=== PATIENT | male | born 1950 | race Hispanic/Latino ===

== ENCOUNTER 2020-05-14 18:17 | Observation (INO) | payer MEDICARE ==
[~2020-05-14] VITALS: Ht 172.7 cm; Wt 95.3 kg
[2020-05-14] MEDS ORDERED: ASPIRIN 81 MG CHEW TAB PO ONE (18:45)
[2020-05-14] MEDS ORDERED: DEXTROSE 50% SYRINGE 50 ML IV ONE (18:56)
--- NOTE | 2020-05-14 18:56 | NUR ---
d50 pushed-blood sugar 54
--- NOTE | 2020-05-14 19:01 | Emergency Department Note ---
History of Present Illnes History of Present Illness Chief Complaint: General Medicine Complaints History of Present Illness This is a 70 year old male arrived to the ED with complaints of generalized malaise and weakness and low blood sugar. 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 Any updates have been documented here. Past Medical History Recent Fever: No Clinical Suspicion of Infectio: No New/Unexplained Change in Ment: No Past Medical History: Diabetes Past Surgical History: None Review of Systems Review of Systems Constitutional: Reports as per HPI, Reports weakness EENTM: Reports no symptoms Cardiovascular: Reports no symptoms Respiratory: Reports no symptoms Gastrointestinal: Reports no symptoms Genitourinary: Reports no symptoms Musculoskeletal: Reports no symptoms Integumentary: Reports no symptoms Neurological: Reports no symptoms Psychological: Reports no symptoms Endocrine: Reports as per HPI Hematological/Lymphatic: Reports no symptoms Physical Exam Related Data Allergies: Coded Allergies: No Known Allergies (Unverified , 05/14/20) Triage Vital Signs Vital Signs Date Time Temp Pulse Resp B/P (MAP) Pulse Ox O2 Delivery O2 Flow Rate FiO2 05/14/20 18:33 97.2 57 16 166/110 97 Room Air Vital signs reviewed: Yes Physical Exam CONSTITUTIONAL Constitutional: Present well-developed, Present well-nourished HENT HENT: Present normocephalic, Present atraumatic, Present oropharynx clear/moist, Present nose normal HENT L/R: Present left ext ear normal, Present right ext ear normal EYES Eyes: Reports PERRL, Reports conjunctivae normal NECK Neck: Present ROM normal PULMONARY Pulmonary: Present effort normal, Present breath sounds normal CARDIOVASCULAR Cardiovascular: Present regular rhythm, Present heart sounds normal, Present capillary refill normal, Present normal rate GASTROINTESTINAL Abdominal: Present soft, Present nontender, Present bowel sounds normal GENITOURINARY Genitourinary: Present exam deferred SKIN Skin: Present warm, Present dry MUSCULOSKELETAL Musculoskeletal: Present ROM normal NEUROLOGICAL Neurological: Present alert, Present oriented x 3, Present no gross motor or sensory deficits PSYCHOLOGICAL Psychological: Present mood/affect normal, Present judgement normal Results Laboratory Lab results reviewed: Yes Laboratory comments Laboratory Tests Test 05/14/20 18:45 White Blood Count 11.25 x10e3/uL (4.8-10.8) Red Blood Count 4.53 x10e6/uL (4.3-5.7) Hemoglobin 12.6 g/dL (14.0-18.0) Hematocrit 38.9 % (38.2-49.6) Mean Corpuscular Volume 85.9 fL (81-99) Mean Corpuscular Hemoglobin 27.8 pg (28-32) Mean Corpuscular Hemoglobin Concent 32.4 g/dL (31-35) Red Cell Distribution Width 14.0 % (11.7-14.4) Platelet Count 208 x10e3/uL (140-360) Neutrophils (%) (Auto) 73.0 % (38.7-80.0) Lymphocytes (%) (Auto) 16.3 % (18.0-39.1) Monocytes (%) (Auto) 6.8 % (4.4-11.3) Eosinophils (%) (Auto) 3.1 % (0.0-6.0) Basophils (%) (Auto) 0.3 % (0.0-1.0) Neutrophils # (Auto) 8.2 (2.1-6.9) Lymphocytes # (Auto) 1.8 (1.0-3.2) Monocytes # (Auto) 0.8 (0.2-0.8) Eosinophils # (Auto) 0.4 (0.0-0.4) Basophils # (Auto) 0.0 (0.0-0.1) Absolute Immature Granulocyte (auto 0.06 x10e3/uL (0-0.1) Sodium Level 146 mmol/L (136-145) Potassium Level 4.4 mmol/L (3.5-5.1) Chloride Level 115 mmol/L (98-107) Carbon Dioxide Level 20 mmol/L (22-29) Anion Gap 15.4 mmol/L (8-16) Blood Urea Nitrogen 45 mg/dL (7-26) Creatinine 2.00 mg/dL (0.72-1.25) Estimat Glomerular Filtration Rate 33 ML/MIN (60-) BUN/Creatinine Ratio 23 (6-25) Glucose Level 43 mg/dL (74-118) Calcium Level 9.9 mg/dL (8.4-10.2) Total Bilirubin 0.4 mg/dL (0.2-1.2) Aspartate Amino Transf (AST/SGOT) 16 IU/L (5-34) Alanine Aminotransferase (ALT/SGPT) 13 IU/L (0-55) Alkaline Phosphatase 105 IU/L (40-150) Creatine Kinase 132 IU/L (30-200) Creatine Kinase MB 2.90 ng/mL (0-5.0) Troponin I < 0.001 ng/mL (0-0.300) Total Protein 7.8 g/dL (6.5-8.1) Albumin 4.0 g/dL (3.5-5.0) Globulin 3.8 g/dL (2.3-3.5) Albumin/Globulin Ratio 1.1 (0.8-2.0) Assessment & Plan Medical Decision Making MDM 62-year-old male arrived to the ED with low blood sugar, patient given oral intake as well as and the D50 with continuous fluctuations in blood sugar. Patient is on the toes a very patient in the hospital for observation and serial blood glucose monitoring. Assessment & Plan Final Impression: (1) Hypoglycemia Depart Disposition: ADMITTED Last Vital Signs Date Time Temp Pulse Resp B/P (MAP) Pulse Ox O2 Delivery O2 Flow Rate FiO2 05/14/20 18:33 97.2 57 16 166/110 97 Room Air Home Meds Reported Medications Olmesartan Medoxomil (Olmesartan Medoxomil) 40 Mg Tablet, 40 MG DAILY 05/14/20 Liraglutide (VICTOZA 3-BEN) 0.6 Mg/0.1 Ml Pen.injctr, 0.6 SQ 05/14/20 Insulin Degludec (Tresiba Flextouch U-100) 100 Unit/1 Ml Insuln.pen, 60 UNITS BLADIN DAILY 05/14/20 Carvedilol (CARVEDILOL) 12.5 Mg Tablet, 12.5 MG BID 05/14/20 RIRI PERKINS DO May 14, 2020 19:00
[2020-05-14 19:13] LABS: BASOPHILS % 0.3 % (0.0-1.0); EOSINOPHILS # (AUTO) 0.4 (0.0-0.4); EOSINOPHILS % 3.1 % (0.0-6.0); HEMATOCRIT 38.9 % (38.2-49.6); HEMOGLOBIN 12.6 g/dL (14.0-18.0); LYMPHOCYTES # (AUTO) 1.8 (1.0-3.2); LYMPHOCYTES % 16.3 % (18.0-39.1); MEAN CORPUSCULAR HEMOGLOBIN 27.8 pg (28-32); MEAN CORPUSCULAR HGB CONC 32.4 g/dL (31-35); MEAN CORPUSCULAR VOLUME 85.9 fL (81-99); MONOCYTES # (AUTO) 0.8 (0.2-0.8); MONOCYTES % 6.8 % (4.4-11.3); NEUTROPHILS # (AUTO) 8.2 (2.1-6.9); PLATELET COUNT 208 x10e3/uL (140-360); RED BLOOD COUNT 4.53 x10e6/uL (4.3-5.7)
[2020-05-14 19:33] LABS: ALANINE AMINOTRANSFERASE 13 IU/L (0-55); ALBUMIN/GLOBULIN RATIO 1.1 (0.8-2.0); ALKALINE PHOSPHATASE 105 IU/L (40-150); ANION GAP 15.4 mmol/L (8-16); BLOOD UREA NITROGEN 45 mg/dL (7-26); BUN/CREATININE RATIO 23 (6-25); CALCIUM 9.9 mg/dL (8.4-10.2); CARBON DIOXIDE 20 mmol/L (22-29); CHLORIDE 115 mmol/L (98-107); CREATINE KINASE 132 IU/L (30-200); EST GLOMERULAR FILTRATION RATE 33 ML/MIN (60-); POTASSIUM 4.4 mmol/L (3.5-5.1); SODIUM 146 mmol/L (136-145)
[2020-05-14 19:35] LABS: GLUCOSE 43 mg/dL (74-118)
--- NOTE | 2020-05-14 19:35 | Diagnostic Imaging Report ---
EXAMINATION: Head CT without contrast. HISTORY:Altered mental status. COMPARISON:None. TECHNIQUE: Multidetector axial images were obtained from the foramen magnum to the vertex without contrast. The images were reconstructed using brain and bone algorithms. Thin section brain images were reformatted into coronal and sagittal planes. Dose modulation, iterative reconstruction, and/or weight based adjustment of the mA/kV was utilized to reduce the radiation dose to as low as reasonably achievable. Intravenous contrast: None IMAGE QUALITY: Acceptable. FINDINGS: Skull/scalp: No lytic or blastic. lesions. No surgical changes. Parenchyma: Nonspecific few, scattered supratentorial white matter hypodensity are likely related to small vessel ischemic changes. No acute hemorrhage, mass or acute major vascular territorial infarct. Arteries: No density suggestive of thrombosis. Dural sinuses: No abnormal density suggestive of thrombosis. Ventricles: Mild compensated dilatation due to volume loss. No hydrocephalus. Extra-axial spaces: No abnormal density. Brain volume: Normal for age. Craniocervical junction: No mass, Chiari malformation, or basilar invagination. Sella: No mass. Paranasal/mastoid sinuses: Imaged portions unremarkable. IMPRESSION: No acute intracranial abnormality. Signed by: Dr. Joanie Pacheco M.D. on 05/14/2020 7:32 PM
[2020-05-14] MEDS ORDERED: VICTOZA 3-0.6 MG/0.1 SQ (20:39)
[2020-05-14] MEDS ORDERED: CARVEDILOL12.5 MG (20:39)
[2020-05-14] MEDS ORDERED: OLMESARTAN MEDO40 MG (20:39)
[2020-05-14] MEDS ORDERED: TRESIBA FL100 UNIT/1 BLADIN (20:39)
--- OUTSIDE RECORDS SUMMARY | 2020-05-14 21:38 | XMS REPORT | Continuity of Care Document ---
Author Author [facility] Organization [facility] Address [address] [place] [address] Dr. Hendrix [address] [place] [id number] Phone Unavailable Care Team Providers Care Surveyor Instrument Assistant Name Role Phone Ira PERKINS Attcorry Unavailable Problems This patient has no known problems. Allergies, Adverse Reactions, Alerts This patient has no known allergies or adverse reactions. Medications This patient has no known medications. Procedures This patient has no known procedures. Results Test Description Test Time Test Comments Results Result Comments Source CT BRAIN WO 2020-05-14 19:29:00 [facility] : 1950 Sex: M [facility] [address] [place] [address] Patient Name: WILLIAM ENCISO MR #: [id number] : 1950 Age/Sex: 70/M Req #: [id number] [facility] Physician: Ordered by: RIRI PERKINS DO Report #: [id number] Location: ER Room/Bed: Procedure: [id number] CT/CT BRAIN WO Exam Date: Exam Time: REPORT STATUS: Signed EXAMINATION: Head CT without contrast. HISTORY:Altered mental status. COMPARISON:None. TECHNIQUE: Multidetector axial images were obtained from the foramen magnum to the vertex without contrast. The images were reconstructed using brain and bone algorithms. Thin section brain images were reformatted into coronal and sagittal planes. Dose modulation, iterative reconstruction, and/or weight based adjustment of the mA/kV was utilized to reduce the radiation dose to as low as reasonably achievable. Intravenous contrast: None IMAGE QUALITY: Acceptable. FINDINGS: Skull/scalp: No lytic or blastic. lesions. No surgical changes. Parenchyma: Nonspecific few, scattered supratentorial white matter hypodensity are likely related to small vessel ischemic changes. No acute hemorrhage, mass or acute major vascular territorial infarct. Arteries: No density suggestive of thrombosis. Dural sinuses: No abnormal density suggestive of thrombosis. Ventricles: Mild compensated dilatation due to volume loss. No hydrocephalus. Extra-axial spaces: No abnormal density. Brain volume: Normal for age. Craniocervical junction: No mass, Chiari malformation, or basilar invagination. Sella: No mass. Paranasal/mastoid sinuses: Imaged portions unremarkable. IMPRESSION: No acute intracranial abnormality. Signed by: Dr. Joanie Pacheco M.D. on 05/14/2020 7:32 PM Dictated By: JOANIE PACHECO MD 31 Transcribed By: YONATAN on 05/14/201931 COPY TO: RIRI PERKINS DO
[2020-05-14] MEDS ORDERED: DEXTROSE 50% SYRINGE 50 ML IV PRN (22:30)
[2020-05-15] VITALS (10 sets, daily range): BP systolic 129–185; BP diastolic 72–94
--- NOTE | 2020-05-15 03:29 | NUR ---
SPOKE TO DR. BRAXTON AT THIS TIME REGARDING BP READING 183/89, HR 67. NEW ORDER RECEIVED TO CONTINUE HOME MED CARVEDILOL TO START NOW. METOPROLOL TARTRATE 5MG IV Q2H PRN SYSTOLIC BP GREATER THAT 140.
[2020-05-15] MEDS ORDERED: METOPROLOL TARTRATE INJ 1 MG/ML VIAL IV PRN (03:30)
[2020-05-15] MEDS: CARVEDILOL 12.5 MG TAB PO SCH ×3 (04:05→16:17)
[2020-05-15 05:07] LABS: BASOPHILS % 0.3 % (0.0-1.0); EOSINOPHILS # (AUTO) 0.3 (0.0-0.4); EOSINOPHILS % 3.2 % (0.0-6.0); HEMATOCRIT 34.6 % (38.2-49.6); HEMOGLOBIN 11.2 g/dL (14.0-18.0); LYMPHOCYTES # (AUTO) 1.5 (1.0-3.2); LYMPHOCYTES % 17.8 % (18.0-39.1); MEAN CORPUSCULAR HEMOGLOBIN 27.9 pg (28-32); MEAN CORPUSCULAR HGB CONC 32.4 g/dL (31-35); MEAN CORPUSCULAR VOLUME 86.1 fL (81-99); MONOCYTES # (AUTO) 0.6 (0.2-0.8); MONOCYTES % 6.9 % (4.4-11.3); NEUTROPHILS # (AUTO) 6.2 (2.1-6.9); NEUTROPHILS % 71.3 % (38.7-80.0); PLATELET COUNT 195 x10e3/uL (140-360); RED BLOOD COUNT 4.02 x10e6/uL (4.3-5.7); RED CELL DISTRIBUTION WIDTH 14.3 % (11.7-14.4)
[2020-05-15 05:25] LABS: ALBUMIN 3.6 g/dL (3.5-5.0); ALBUMIN/GLOBULIN RATIO 1.1 (0.8-2.0); ANION GAP 16.5 mmol/L (8-16); CALCIUM 9.4 mg/dL (8.4-10.2); CREATININE, SERUM 2.02 mg/dL (0.72-1.25)
[2020-05-15 05:38] LABS: POTASSIUM 5.5 mmol/L (3.5-5.1)
--- NOTE | 2020-05-15 05:57 | NUR ---
H&P cc: low glucose HPI: 70yoM, PCP [facility], developed low blood glucose. Pt states that he was out, took extra victoza, later took tresiba, developed sweats and may have passed out. 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 affect a&ox3; becerril labs/meds revd A/P: 70yoM Hypoglycemia- give dextrose Hyperkalemia- give kayexalate TODD- IVF Metabolic acidosis- bicarbs CKD3 due to DM2? check renal U/S Obesity- 1/2 portion size needed BMI 31- as above HTN- resume home med Prop; scd; pepcid dispo; monitor labs CARL BRAXTON MD, PHD.
[2020-05-15] MEDS ORDERED: SODIUM BICARBONATE 8.4% 50 ML in SODIUM CHLORIDE 0.45% 1,000 ML IV ONE (06:00)
[2020-05-15] MEDS ORDERED: SOD POLYSTYRENE SULFONATE SUSP 15 GM/60 ML BTL PO ONE (06:00)
[2020-05-15] MEDS ORDERED: DOCUSATE SODIUM 100 MG CAP PO PRN (06:00)
[2020-05-15] MEDS ORDERED: ONDANSETRON HCL INJ 2MG/ML 2ML 2 MG/ML VIAL IV PRN (06:00)
[2020-05-15] MEDS ORDERED: ZOLPIDEM TARTRATE 5 MG TAB PO PRN (06:00)
[2020-05-15] MEDS ORDERED: ACETAMINOPHEN 325 MG TAB PO PRN (06:00)
--- NOTE | 2020-05-15 06:42 | NUR ---
SPOKE TO DR. BRAXTON TO CLARIFY IV FLUID ORDER. SAID IV FLUIDS IS CONTINUOUS. OFFSITE PHARMACY NOTIFIED
--- NOTE | 2020-05-15 07:00 | NUR ---
ASSUMED CARE. AAOX3. ACYANOTIC. RESTING IN BED. NO DISTRESS NOTED. CALL LIGHT IN REACH. SIDE RAILS UP X2. BED LOW AND LOCKED.
[2020-05-15] MEDS: FAMOTIDINE 20 MG TAB PO SCH ×2 (07:30→16:14)
[2020-05-15] MEDS: INSULIN DEGLUDEC 60 UNIT SQ SCH ×2 (09:00→13:30)
[2020-05-15] MEDS: SODIUM BICARBONATE 8.4% 50 ML in SODIUM CHLORIDE 0.45% 1,000 ML IV SCH (09:40)
--- NOTE | 2020-05-15 13:53 | NUR ---
PATIENT'S HOME MED WAS DELIVERED AT APPROXIMATELY 1320.
[2020-05-15 16:05] LABS: MAGNESIUM 1.8 MG/DL (1.3-2.1); POTASSIUM 5.2 mmol/L (3.5-5.1)
--- NOTE | 2020-05-15 21:35 | NUR ---
NOTIFIED DR. BRAXTON REGARDING BLOOD GLUCOSE READING 324. NEW ORDER RECEIVED FOR LOW DOSE HUMULIN R SLIDING SCALE.
[2020-05-15] MEDS: INSULIN REGULAR, HUMAN 100 UNIT/1 ML 3ML VIAL SQ SCH (22:17)
[2020-05-16] VITALS: BP 138/76
[2020-05-16] MEDS: SODIUM BICARBONATE 8.4% 50 ML in SODIUM CHLORIDE 0.45% 1,000 ML IV SCH ×2 (01:01→10:45)
[2020-05-16 04:00] VITALS: BP 158/90
[2020-05-16 06:18] LABS: BASOPHILS % 0.5 % (0.0-1.0); EOSINOPHILS # (AUTO) 0.6 (0.0-0.4); EOSINOPHILS % 7.8 % (0.0-6.0); HEMATOCRIT 32.3 % (38.2-49.6); HEMOGLOBIN 10.7 g/dL (14.0-18.0); LYMPHOCYTES # (AUTO) 1.9 (1.0-3.2); LYMPHOCYTES % 24.1 % (18.0-39.1); MEAN CORPUSCULAR HEMOGLOBIN 29.4 pg (28-32); MEAN CORPUSCULAR HGB CONC 33.1 g/dL (31-35); MEAN CORPUSCULAR VOLUME 88.7 fL (81-99); MONOCYTES # (AUTO) 0.7 (0.2-0.8); MONOCYTES % 8.6 % (4.4-11.3); NEUTROPHILS # (AUTO) 4.7 (2.1-6.9); NEUTROPHILS % 58.6 % (38.7-80.0); PLATELET COUNT 179 x10e3/uL (140-360); RED BLOOD COUNT 3.64 x10e6/uL (4.3-5.7); RED CELL DISTRIBUTION WIDTH 14.5 % (11.7-14.4)
[2020-05-16 06:32] LABS: CALCIUM 8.2 mg/dL (8.4-10.2); CREATININE, SERUM 1.84 mg/dL (0.72-1.25)
[2020-05-16] MEDS: INSULIN REGULAR, HUMAN 100 UNIT/1 ML 3ML VIAL SQ SCH ×2 (07:30→11:30)
[2020-05-16] MEDS: FAMOTIDINE 20 MG TAB PO SCH (07:30)
[2020-05-16 08:00] VITALS: BP 152/88
[2020-05-16] MEDS: CARVEDILOL 12.5 MG TAB PO SCH (08:23)
[2020-05-16 08:35] VITALS: BP 152/88
[2020-05-16] MEDS: INSULIN DEGLUDEC 60 UNIT SQ SCH ×2 (09:00→12:33)
--- NOTE | 2020-05-16 09:27 | NUR ---
Notified Dr. Herrera that pt does not meet inpt and is day 2 obs. Requested his plan of care. Awaiting reply.
--- NOTE | 2020-05-16 09:40 | NUR ---
Dr. Herrera responded and will "likely" discharge home today.
[2020-05-16 12:21] VITALS: BP 150/81
--- NOTE | 2020-05-16 12:58 | NUR ---
D/C Summary Principal dx: Hypoglycemia- give dextrose Hyperkalemia- give kayexalate TODD- IVF Uncontrolled DM2- hab1c/LDL 12.1/109 Metabolic acidosis- bicarbs Secondary Dx CKD3 due to DM2? check renal U/S Obesity- 1/2 portion size needed BMI 31- as above HTN- resume home med Prop; scd; pepcid dispo; monitor labs Likely has CKD3 due to DM2. Needs f/u with nephrology outpt. d/c home stable f/u pcp 1-2 days and glass mechanic 3-5 days d/c>35mins CARL BRAXTON MD, PHD.
[2020-05-16] MEDS ORDERED: FAMOTIDINE20 MG PO (13:27)
[2020-05-16] MEDS ORDERED: SODIUM BICARBO650 MG PO (13:27)
[2020-05-16] MEDS ORDERED: COREG12.5 MG PO (13:28)
[2020-05-16] MEDS ORDERED: CARVEDILOL 12.5 MG TAB PO SCH (13:30)
== END 2020-05-16 14:44 | disposition home or self-care (01) ==
LOC: ER 19:28 → ERHOLD 21:21 → MED/SURG 22:45
PROVIDERS: ADMIT Internal Medicine; ATTEND Internal Medicine
DX: E11.649 Type 2 diabetes mellitus with hypoglycemia without coma (principal); Z79.899 Other long term (current) drug therapy; E87.5 Hyperkalemia; Z79.4 Long term (current) use of insulin; I12.9 Hypertensive chronic kidney disease with stage 1 through stage 4 chronic kidney disease, or unspecified chronic kidney disease; E11.22 Type 2 diabetes mellitus with diabetic chronic kidney disease; N18.30 Chronic kidney disease, stage 3 unspecified; N17.9 Acute kidney failure, unspecified; E66.9 Obesity, unspecified; Z68.31 Body mass index [BMI] 31.0-31.9, adult; E87.2 Acidosis; Z87.891 Personal history of nicotine dependence; Z11.59 Encounter for screening for other viral diseases
CPT/HCPCS: 36415 ×3; 70450; 80048; 80053 ×2; 80061; 82550; 82553; 82948 ×3; 83036; 83735; 84132; 84484; 85025 ×3; 96372; 99284; G0378 ×3; J1817; J7799; U0002